=== PATIENT | female | born 1995 | race Two or more races ===

== ENCOUNTER 2017-03-14 11:30 | Observation (INO) | payer MEDICAID | END 2017-03-14 12:40 | disposition home or self-care (01) | DRG 566 | LOC: LDRP 11:30 | PROVIDERS: ADMIT Specialist; ATTEND Specialist | DX: O62.9 Abnormality of forces of labor, unspecified (principal); O26.893 Other specified pregnancy related conditions, third trimester; M54.9 Dorsalgia, unspecified; Z3A.39 39 weeks gestation of pregnancy | CPT/HCPCS: 59025; 81002; G0378 ==

== ENCOUNTER 2017-03-18 16:20 | Observation (INO) | payer MEDICAID ==
[2017-03-18 17:42] LABS: Basophils # (auto) 0 uL; Basophils % (auto) 0.4 % (0.0-2.0); CONDITION Y; Eosinophils # (auto) 0 uL; Eosinophils % (auto) 0.5 % (0.0-7.0); Hematocrit 36.2 % (36.0-46.0); Hemoglobin 12.3 g/dL (12.2-16.2); Lymphocytes # (auto) 1.8 uL; Lymphocytes % (auto) 24.1 % (10.0-50.0); Mean Corpuscular Hemoglobin 28.8 pg (28.0-32.0); Mean Corpuscular Hgb Conc. 33.8 g/dL (32.0-36.0); Mean Corpuscular Volume 85.2 fL (80.0-100.0); Mean Platelet Volume 9.3 fL (7.4-10.4); Monocytes # (auto) 0.5 uL; Monocytes % (auto) 6.6 % (0.0-12.0); Neutrophils # (auto) 5.2 uL; Neutrophils % (auto) 68.4 % (37.0-80.0); Platelet Count (auto) 248 10^3/uL (140-450); Red Cell Distribution Width 15.2 % (11.6-16.0); White Blood Cell 7.5 10^3/uL (4.4-10.8)
[2017-03-18 17:58] LABS: INR 0.89 (0.9-1.15); Partial Thromboplastin Time 27.8 sec (22.64-33.71); Prothrombin Time 9.7 sec (9.37-12.3)
[2017-03-18 18:02] LABS: Urine Bilirubin Negative (Negative); Urine Blood Negative /uL (Negative); Urine Color Yellow (Yellow); Urine Glucose Normal (Normal); Urine Ketone Negative (Negative); Urine Nitrite Negative (Negative); Urine RBC <1 /hpf (0 - 4); Urine Squamous Epithelial Cell FEW /hpf (<5); Urine Urobilinogen Normal (Negative); Urine pH 6.5 (5.0-8.0)
[2017-03-18 18:05] LABS: Albumin 2.6 g/dL (3.4-5.0); BUN/Creatinine Ratio 14.3; Bilirubin, Total 0.2 mg/dL (0.2-1.0); Calcium 8.3 mg/dL (8.5-10.1); Total Protein 6.8 g/dL (6.4-8.2)
== END 2017-03-18 21:45 | disposition home or self-care (01) | DRG 565 ==
LOC: LDRP 16:20
PROVIDERS: ADMIT Obstetrics & Gynecology; ATTEND Obstetrics & Gynecology
DX: O47.9 False labor, unspecified (principal); O26.893 Other specified pregnancy related conditions, third trimester; N89.8 Other specified noninflammatory disorders of vagina; Z3A.39 39 weeks gestation of pregnancy; O62.9 Abnormality of forces of labor, unspecified
CPT/HCPCS: 36415; 59025; 76805; 76818; 80053; 80307; 81001; 81002; 85025; 85610; 85730; 86592; 86703; 86762; 86850; 86900; 86901; 87340; G0378

== ENCOUNTER 2017-03-19 01:42 | Inpatient (IN) | payer MEDICAID ==
[~2017-03-19] VITALS: Ht 167.6 cm; Wt 82.6 kg
[2017-03-19] MEDS ORDERED: OXYTOCIN 10UNIT/ML 1ML VIAL ONE (01:52)
[2017-03-19] MEDS ORDERED: LIDOCAINE 2%HCL (LOCAL ANESTH.) INJ 20ML MDV ONE ×2 (01:52→01:54)
[2017-03-19] MEDS: LACT. RINGERS/OXYTOCIN 20UNITS 1,000 ML IV ONE ×2 (01:53→02:16)
[2017-03-19] MEDS ORDERED: DERMOPLAST 60ML BOTTLE TOP ONE (01:53)
[2017-03-19] MEDS ORDERED: PHISODERM TOP SOLN 240ML BTL TOP ONE (01:53)
[2017-03-19] MEDS ORDERED: METHYLERGONOVINE MALEATE 0.2 MG/ML AMP IM ONE (01:53)
[2017-03-19] MEDS ORDERED: WITCH HAZEL-GLYCERIN PAD TOP ONE (01:53)
[2017-03-19] MEDS ORDERED: PENICILLIN G POT 5MIL/D5 50ML 50 ML IV ONE ×2 (01:54→02:30)
[2017-03-19] MEDS: LACTATED RINGER'S 1,000 ML IV SCH ×2 (02:07→17:38)
[2017-03-19] MEDS ORDERED: LACT. RINGERS/OXYTOCIN 20UNITS 1,000 ML IV SCH (02:19)
[2017-03-19] MEDS ORDERED: WITCH HAZEL-GLYCERIN PAD TOP PRN (02:30)
[2017-03-19] MEDS ORDERED: DERMOPLAST 60ML BOTTLE TOP PRN (02:30)
[2017-03-19] MEDS ORDERED: PHISODERM TOP SOLN 240ML BTL TOP PRN (02:30)
[2017-03-19] MEDS ORDERED: LACT. RINGERS/OXYTOCIN 20UNITS 500 ML IV ONE (03:06)
[2017-03-19] MEDS ORDERED: IBUPROFEN 600 MG TAB PO ONE (03:19)
[2017-03-19] MEDS ORDERED: ACETAMINOPHEN 325 MG TAB PO ONE (05:30)
[2017-03-19 06:20] VITALS: BP 126/55
[2017-03-19] MEDS: IBUPROFEN 600 MG TAB PO PRN ×3 (09:16→21:14)
[2017-03-19 10:57] VITALS: BP 129/83
[2017-03-19] MEDS ORDERED: TETANUS-DIPTH-ACEL PERTUSSIS 0.5ML SYRG IM ONE (15:15)
[2017-03-19 16:13] VITALS: BP 123/79
[2017-03-19 19:50] VITALS: BP 113/61
[2017-03-19 23:37] VITALS: BP 126/82
[2017-03-20 03:38] VITALS: BP 118/77
[2017-03-20 07:10] VITALS: BP 114/71
[2017-03-20 11:20] VITALS: BP 119/71
[2017-03-20] MEDS ORDERED: PREN-96 PO (13:34)
== END 2017-03-20 14:10 | disposition home or self-care (01) | DRG 560 ==
LOC: LDRP 01:42 → OBSVTOIN 01:42 → LDRP 03:10
PROVIDERS: ADMIT Obstetrics & Gynecology; ATTEND Obstetrics & Gynecology
PROC: 10E0XZZ Delivery of Products of Conception, External Approach (ICD-10-PCS; principal; 2017-03-19)
DX: O62.3 Precipitate labor (principal); O77.0 Labor and delivery complicated by meconium in amniotic fluid; O76 Abnormality in fetal heart rate and rhythm complicating labor and delivery; Z37.0 Single live birth; Z3A.40 40 weeks gestation of pregnancy; Z23 Encounter for immunization; O42.02 Full-term premature rupture of membranes, onset of labor within 24 hours of rupture
CPT/HCPCS: 36415; 59025; 59409; 76805; 76818; 80053; 80307; 81001; 81002; 85025; 85610; 85730; 86592; 86703; 86762; 86850; 86900; 86901; 87340; 90715; 96361; 96366; 96372; G0378; J2540; J2590